=== PATIENT | male | born 1955 | race Caucasian/White ===

== ENCOUNTER 2019-01-30 07:30 | Day surgery (SDC) | payer OTHER ==
[2019-01-25 15:35] VITALS: BMI 23.7
[~2019-01-30 07:30] MED LIST: LACTATED RINGERS 1,000 ML IV SCH
[2019-01-30 08:04] VITALS: TEMP 97.5
[2019-01-30] MEDS ORDERED: PROPOFOL 10 MG/ML 20 ML VIAL IV ONE (08:55)
[2019-01-30] MEDS ORDERED: LIDOCAINE 1% INJ 10MG/ML (20 ML MDV) ONE (08:55)
[2019-01-30] MEDS ORDERED: GLYCOPYRROLATE 0.2 MG/ML 2 ML VIAL ONE (08:55)
--- NOTE | 2019-01-30 09:41 | P.PCN ---
Date of Procedure: 01/30/19 Description of Procedure: Brief history: Patient is a pleasant scheduled for an elective upper endoscopy as well as colonoscopy as a part of evaluation of GERD and a personal history of colon polyps. Patient reports symptoms of reflux for which she took Prilosec. A colonoscopy 5 years ago and significant for colon polyps. Procedure performed: Esophagogastroduodenoscopy with biopsy Colonoscopy with polypectomy Estimated blood loss: Minimal. Preoperative diagnosis: GERD, personal history of colon polyps, last colonoscopy 5 years Anesthesia: MAC Procedure: After informed consent was obtained from the patient was brought into the endoscopy unit and IV sedation was administered by anesthesia under continuous monitoring. Initially upper endoscopy was done. The Olympus GF 190 video endoscope was inserted into the mouth and esophagus intubated without any difficulty and was gradually advanced into the stomach and duodenum and carefully examined. The bulb and second part of the duodenum appeared normal, with biopsies taken to rule out celiac sprue. The scope was then withdrawn into the stomach adequately insufflated with air and upon careful examination the antrum and body, cardia and fundus appeared normal with scattered erythema in the antrum and body suggestive of mild gastritis with biopsies taken. The scope was then withdrawn into the esophagus. The GE junction was located at 42 cm to the incisors, with biopsies taken in the setting of reflux. It appeared regular with no erythema erosions or ulcerations. Rest of the esophagus appeared normal. Patient tolerated the procedure well. At this time the patient continued to remain sedation. Initial digital rectal examination was normal. Olympus CF 190 video colonoscope was then inserted into the rectum and gradually advanced to the cecum without any difficulty. Careful examination was performed as the scope was gradually being withdrawn. The prep was excellent. The cecum, ascending colon, transverse colon, descending colon, sigmoid colon and rectum appeared normal. 2 sessile sigmoid polyps measuring 8 mm and 6 mm in size removed with hot snare polypectomy and cold snare polypectomy respectively. One diminutive 2 mm rectal polyp removed with cold forcep polypectomy. Retroflexion was performed in the rectum and no lesions were noted. Patient tolerated the procedure well. Impression: 1. Mild gastritis antrum body biopsy. Biopsies of the duodenum and GE junction. 2. 2 sigmoid colon polyps removed with hot snare polypectomy and cold snare polypectomy. One diminutive rectal polyp removed with cold forcep polypectomy. Recommendations: Findings of this examination were discussed with the patient as well as his family. Okay to resume diet and medications. Await pathology from polypectomies. Anticipate repeat colonoscopy in 3-5 years pending pathology from polypectomies.
[2019-01-30 09:51] VITALS: RESP 18
[2019-01-30 10:34] VITALS: BP 127/86; PULSE 66
== END 2019-01-30 10:30 | disposition home or self-care (01) ==
LOC: ORWHC2ENDO 07:30
PROVIDERS: ATTEND Internal Medicine
DX: K29.50 Unspecified chronic gastritis without bleeding (principal); K20.0 Eosinophilic esophagitis; D12.5 Benign neoplasm of sigmoid colon; K63.5 Polyp of colon; K62.1 Rectal polyp; Z86.010 Personal history of colon polyps; Z91.030 Bee allergy status; Z79.899 Other long term (current) drug therapy; Z98.890 Other specified postprocedural states; Z85.46 Personal history of malignant neoplasm of prostate
CPT/HCPCS: 88305; 88313; 45380; 45385; 43239; J2001; J2704

== ENCOUNTER → 2022-12-06 | Outpatient (CLI) | payer OTHER ==
--- NOTE | 2022-12-20 09:50 | MR ---
EXAMINATION TYPE: MR hand RT wo con DATE OF EXAM: 12/06/2022 COMPARISON: None HISTORY: 66-year-old male pain and discomfort, Bursal cyst 3rd digit middle phalange, Right hand TECHNIQUE: Multiplanar, multisequence images of the right hand were obtained without IV contrast. FINDINGS: No acute or healing fracture. No suspicious bone marrow replacement. There are subchondral signal changes at the distal radioulnar joint especially along the dorsal aspec t. There is [id number] degenerative change of the first CMC joint and triscaphe joint with small e ffusions. Cartilage thinning and marginal spurring is present at both sites. Borderline thickening of the median nerve at the level of the distal wrist crease and 13 sq mm. The dorsal extensor and volar flexor tendons at the wrist appear intact. There is a cystic structure measuring 5 x 4 mm along the ulnar aspect of the third finger at the leve l of the renal phalangeal shaft. Additional bilocular cystic structure located dorsally at the level of the DIP joint measuring 8 x 6 mm. This overlies the insertion of the extensor tendon. No underlying joint effusion or osseous edema or pleural effusions. IMPRESSION: 1. A 5 mm cyst located along the ulnar aspect of the third finger at the level of the middle phalange al shaft. A second bilocular cyst measuring 8 mm along the dorsal aspect of the third finger at the l evel of the DIP joint. Small mucous cysts or adventitial bursal cysts are considered. 2. No suspicious underlying bony lesions are identified. 3. 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 Additional moderate osteoarthriti c change at the distal radioulnar joint.
== END | disposition home or self-care (01) ==
LOC: RADMRIMAIN 18:08
PROVIDERS: ATTEND Family Medicine
DX: M71.341 Other bursal cyst, right hand (principal); M19.041 Primary osteoarthritis, right hand